=== PATIENT | female | born 1960 | race Caucasian/White ===

== ENCOUNTER 2017-10-11 05:39 | Day surgery (SDC) | payer OTHER ==
[2017-10-11] MEDS: THROMBIN 5000 UNIT VIAL TOP ×2
[2017-10-11] MEDS: LIDOCAINE 1%/EPI 30 ML INJ INJ
[2017-10-11] MEDS: METHYLPREDNISOLONE ACET 80 MG/ML 1 ML INJ
[2017-10-11] MEDS ORDERED: GELATIN SIZE 100 SPONGE (06:54)
[2017-10-11] MEDS ORDERED: LIDOCAINE 1%/EPI 30 ML INJ (06:54)
[2017-10-11] MEDS ORDERED: BUPIVACAINE 0.5% (SDV) 30 ML INJ (06:54)
[2017-10-11] MEDS ORDERED: THROMBIN 5000 UNIT VIAL (06:55)
[2017-10-11] MEDS ORDERED: POLYMYXIN/BACITRACIN 1L IRRIG (06:55)
[2017-10-11] MEDS ORDERED: FENTAnyl 50 MCG/ML VIAL (08:02)
[2017-10-11] MEDS ORDERED: ROCURONIUM 50 MG INJ (08:40)
[2017-10-11] MEDS ORDERED: PROPOFOL 20 ML (08:40)
[2017-10-11] MEDS ORDERED: SUCCINYLCHOLINE CHLORIDE 100 MG/5 ML SYG IV (08:40)
[2017-10-11] MEDS ORDERED: LIDOCAINE 100 MG SYRINGE (08:40)
[2017-10-11] MEDS ORDERED: SUGAMMADEX SODIUM 200 MG/2 ML VIAL IV (08:40)
[2017-10-11] MEDS ORDERED: CEFAZOLIN 1 GM INJ (08:40)
[2017-10-11] MEDS ORDERED: ALBUTEROL 0.083% (NEB) 2.5 MG/3 ML AMP HHN (09:00)
[2017-10-11] MEDS ORDERED: METOCLOPRAMIDE 10 MG INJ IV (09:00)
[2017-10-11] MEDS ORDERED: HYDROmorphONE (0.2 MG/ML) 10ML SYG IV (09:00)
[2017-10-11] MEDS ORDERED: MIDAZOLAM 1 MG/ML 2 ML INJ IV (09:00)
[2017-10-11] MEDS ORDERED: METHYLPREDNISOLONE ACET 80 MG/ML 1 ML (10:41)
[2017-10-11] MEDS: ONDANSETRON 4 MG INJ IV (11:37)
[2017-10-11] MEDS: HYDROmorphONE (0.2 MG/ML) 10ML SYG IV ×3 (11:38→13:07)
== END 2017-10-11 14:05 | disposition home or self-care (01) ==
LOC: SDS 05:39
DX: M48.061 Spinal stenosis, lumbar region without neurogenic claudication (principal); M47.26 Other spondylosis with radiculopathy, lumbar region; E78.5 Hyperlipidemia, unspecified
CPT/HCPCS: 63047; 72020